=== PATIENT | male | born 1990 | race Caucasian/White ===

== ENCOUNTER 2023-10-26 13:21 | Emergency (ER) | payer SELFPAY ==
[2023-10-26 13:24] VITALS: BP 158/93
--- NOTE | 2023-10-26 13:53 | ED.SKININJ ---
HPI-Injury
General
Chief Complaint: Skin Surface Trauma
Source: patient
Exam Limitations: none
Time Seen by Provider: 10/26/23 13:28
History of Present Illness-Injury
Initial Injury comments:
33-year-old [id number] male presents with laceration to left wrist he sustained today. He was using a drill and the drill bit broke and he slipped and he cut his left wrist. He denies numbness or tingling or loss of function. NO other
complaints
Past History
Past History
ED Past Medical History: None
ED Past Surgical History: None
Social History
Tobacco: Non-smoker
Employment: Employed
Phy Exam
Physical Exam
Physical Exam:
General: Well appearing male NAD
SKin: 1cm ragged laceration volar left wrist, superficial in nature without tendon, nerve or vascular involvement.
MSK: Full range of motion left wrist thumb and fingers. Neurologic: Good sensation and function
To the left hand
Vascular: 2+ ulnar and radial pulses left wrist
Course
Orders/Labs/Results
Orders:
Orders
10/26/23 13:48
Tetanus/Diphth/Acelpertussis [Adacel] 0.5 ml IM .ONCE ONE
Vital Signs
Initial and Last Documented VS:
Initial Vital Signs
Temp Pulse Resp BP Pulse Ox
98.7 F 81 17 158/93 98
10/26/23 13:24 10/26/23 13:24 10/26/23 13:24 10/26/23 13:24 10/26/23 13:24
Last Documented Vital Signs
Temp Pulse Resp BP Pulse Ox
98.7 F 81 17 158/93 98
10/26/23 13:24 10/26/23 13:24 10/26/23 13:24 10/26/23 13:24 10/26/23 13:24
MDM/Problems Addressed
Differential Diagnosis Includes:
Laceration left wrist. No vascular nerve or tendon involvement. The wound was copiously irrigated with saline and all foreign material was removed from the wound. The wound was then closed in a simple interrupted fashion using 5-0 Prolene
sutures. 3 sutures were required to do so. Tetanus vaccine updated. Wound care instructions were given. Stable for discharge
*Critical Care Note
Total Time (30-74mins, 75-104mins- exclusive of procedures): Not Applicable
ED Attending Note
-
Portions of this chart may have been created with voice recognition software.� Occasional wrong word or��sound alike� substitutions may have occurred due to the inherent limitations of voice recognition software.
Discharge Plan
Departure
Patient Disposition: Home (Routine Discharge)
Date of Disposition: 10/26/23
Time of Disposition: 14:05
Patient with high blood pressure during this ER visit?: No
Discharge Problem:
Laceration
Instructions: Laceration Repair With Stitches (DC)
Prescriptions:
No Action
No Meds [No Current Medications]
0
Activity Restrictions/Additional Instructions:
Keep clean. Have sutures removed in 10 to 12 days. Return if worse otherwise
Interventions
Interventions:
*Risk Screen - Suicide Last Done: 10/26/23 13:39
*General Assessment Last Done: 10/26/23 13:39
*Neglect/Abuse Screening Last Done: 10/26/23 13:39
ED- Fall Risk Assessment Last Done: 10/26/23 13:39
*ED COVID-19 Vaccine History Last Done: 10/26/23 13:39
ED-Skin Assessment Last Done: 10/26/23 13:36
Discharge Date and Time
Print Language: [place]
[2023-10-26] MEDS: ADACEL 0.5 ML IM (14:09)
== END 2023-10-26 14:14 | disposition home or self-care (01) ==
LOC: EMR 13:21
PROVIDERS: EMERGENCY PHYSICIAN Emergency Medicine
DX: S61.522A Laceration with foreign body of left wrist, initial encounter (principal); W31.89XA Contact with other specified machinery, initial encounter; Z23 Encounter for immunization; Z88.0 Allergy status to penicillin
CPT/HCPCS: 99282; 12041; 90471; 90715

== ENCOUNTER 2023-11-24 21:26 | Emergency (ER) | payer OTHER, SELFPAY ==
[2023-11-24 21:29] VITALS: BP 165/113
[2023-11-24 21:51] VITALS: BMI 26.2
--- NOTE | 2023-11-24 21:59 | ED.GENMED ---
History of Present Illness
General
Chief Complaint: Musculo-Skeletal Complaint
Time Seen by Provider: 11/24/23 21:59
History of Present Illness
History of Present Illness:
HPI: Patient states he was on uneven dirt and slipped and fell twisting his left ankle. He primarily complains of rather severe left ankle pain without any other injury.
EXAM:
GENERAL: Well appearing in no distress
CERVICAL SPINE: No midline c-spine tenderness with excellent AROM
HEAD: No evidence of craniofacial trauma
CHEST: No chest wall tenderness
LUNGS: No respiratory distress
ABDOMEN: No abdominal tenderness, no peritoneal signs
EXTREMITIES: The left ankle joint is markedly swollen at the bilateral malleoli, the joint is very unstable and required reduction during splint placement
NEURO: Excellent strength all extremities, appropriate mental status, normal speech/language
TIME OF INITIAL ENCOUNTER: 10:10 PM
NUMBER AND COMPLEXITY OF PROBLEMS ADDRESSED AT THE ENCOUNTER
� Chronic conditions affecting care: Has had spinal fusion
� Acute Exacerbation and/or Progression of Chronic Illness: This is an acute problem
� Differential Diagnosis includes: Ankle fracture, ankle sprain
AMOUNT AND/OR COMPLEXITY OF DATA TO BE REVIEWED AND ANALYZED
� I performed an independent evaluation of and my interpretation is:
EKG:
CT:
X-rays: I personally viewed x-rays and see evidence of comminuted bimalleolar fracture
Laboratory Studies:
Other:
� Review of other/old records: The patient was here 1 month ago with a laceration at the left wrist
� Clinical information was obtained by an independent historian: I spoke to the at bedside
� Prescriptions/Medications Considered but not given: I offered and considered narcotic analgesia over the patient declines
� Further testing considered but not performed:
RISK OF COMPLICATIONS AND/OR MORBIDITY OR MORTALITY OF PATIENT MANAGEMENT
� Social determinants of health affecting care: Lives at home
� Discussion with other providers: I discussed case with Dr. Castelan who recommends patient to ice and elevate the affected area and will need surgery�to be seen as an outpatient
� Escalation of care including admission/observation vs risk of discharge considered: As above
Past History
Past History
ED Past Medical History: None
ED Past Surgical History: None
Social History
Tobacco: Non-smoker
Employment: Employed
Phy Exam
Physical Exam
Physical Exam:
See HPI
Course
Orders/Labs/Results
Orders:
Orders
11/24/23 21:30
CR Ankle - Left Min 3 Views Urgent
Comment:
Reason For Exam: injury
Vital Signs
Initial and Last Documented VS:
Initial Vital Signs
Temp Pulse Resp BP Pulse Ox
98.2 F 98 18 165/113 98
11/24/23 21:29 11/24/23 21:29 11/24/23 21:29 11/24/23 21:29 11/24/23 21:29
Last Documented Vital Signs
Temp Pulse Resp BP Pulse Ox
98.2 F 98 18 165/113 98
11/24/23 21:29 11/24/23 21:29 11/24/23 21:29 11/24/23 21:29 11/24/23 21:29
*Critical Care Note
Total Time (30-74mins, 75-104mins- exclusive of procedures): Not Applicable
ED Attending Note
-
Portions of this chart may have been created with voice recognition software.� Occasional wrong word or��sound alike� substitutions may have occurred due to the inherent limitations of voice recognition software.
Discharge Plan
Departure
Patient Disposition: Home (Routine Discharge)
Date of Disposition: 11/24/23
Time of Disposition: 22:26
Patient with high blood pressure during this ER visit?: Yes
Discharge Problem:
Bimalleolar fracture of left ankle
Instructions: Ankle Fracture (DC), BLOOD PRESSURE
Prescriptions:
No Action
No Current Medications
0
Referrals:
NONE,* [Family Provider] -
Aakash Castelan MD [Active] - Follow up in 2-3 days
Activity Restrictions/Additional Instructions:
You have a bimalleolar ankle fracture in the fracture appeared very unstable upon initial examination. We placed [address] Castelan who indicates that you will need surgery. I recommend that you call their office and he will
likely be able to see you early next week. I recommend 3-4 [id number] ibuprofen (Motrin) every 8 hours with food for a few days. Return here if worse. It is very important to keep the extremity elevated and ice it.
Interventions
Interventions:
*Risk Screen - Suicide Last Done: 11/24/23 21:28
*General Assessment Last Done: 11/24/23 21:29
*Neglect/Abuse Screening Last Done: 11/24/23 21:29
ED- Fall Risk Assessment Last Done: 11/24/23 21:52
ED-Musculoskeletal Assessment Last Done: 11/24/23 21:50
Discharge Date and Time
Print Language: [place]
[2023-11-24 22:59] VITALS: BP 164/98
== END 2023-11-24 23:01 | disposition home or self-care (01) ==
LOC: EMR 21:26
PROVIDERS: EMERGENCY PHYSICIAN Emergency Medicine
DX: S82.842A Displaced bimalleolar fracture of left lower leg, initial encounter for closed fracture (principal); W01.0XXA Fall on same level from slipping, tripping and stumbling without subsequent striking against object, initial encounter; R03.0 Elevated blood-pressure reading, without diagnosis of hypertension; Z98.1 Arthrodesis status; Z88.0 Allergy status to penicillin
CPT/HCPCS: 99283; 29515; 73610